=== PATIENT | male | born 1955 ===

== ENCOUNTER 2020-11-02 20:23 | Emergency (ER) | payer OTHER, MEDICARE ==
[~2020-11-02] VITALS: Ht 172.7 cm; Wt 79.4 kg
== END 2020-11-02 21:49 | disposition home or self-care (01) ==
LOC: ER 20:23
DX: U07.1 COVID-19 (principal); R53.83 Other fatigue; R05 Cough; R07.89 Other chest pain
CPT/HCPCS: 99283

== ENCOUNTER 2021-07-31 19:21 | Emergency (ER) | payer OTHER ==
[~2021-07-31] VITALS: Ht 172.7 cm; Wt 79.4 kg
[2021-07-31] MEDS ORDERED: EUTHYROX25 MC1 (19:48)
[2021-07-31] MEDS ORDERED: LORA1SY (19:49)
[2021-07-31] MEDS ORDERED: MONT4 (19:49)
== END 2021-07-31 19:56 | disposition home or self-care (01) ==
LOC: ER 19:21
DX: S40.261A Insect bite (nonvenomous) of right shoulder, initial encounter (principal); W57.XXXA Bitten or stung by nonvenomous insect and other nonvenomous arthropods, initial encounter
CPT/HCPCS: 99282

== ENCOUNTER 2024-02-06 08:45 | Inpatient (IN) | payer OTHER ==
[2024-02-06] VITALS (19 sets, daily range): BP systolic 116–147; BP diastolic 66–95
[~2024-02-06] VITALS: Ht 175.3 cm; Wt 85.8 kg
[~2024-02-06 08:45] MED LIST: EUTHYROX25 MC1; LORA1SY; MONT10T PO
[2024-02-06] MEDS ORDERED: FentaNYL Citrate 50 MCG/ML 2 ML Injection ONE ×2 (08:55→09:15)
[2024-02-06] MEDS ORDERED: Heparin Sodium 5000 Units/ML 1ML MDV IV ONE (08:55)
[2024-02-06] MEDS ORDERED: Clopidogrel Bisulfate 75 MG Tab PO ONE (08:55)
[2024-02-06] MEDS ORDERED: FentaNYL Citrate 50 MCG/ML 2 ML Injection IV ONE (08:55)
[2024-02-06] MEDS ORDERED: Verapamil HCL 2.5 MG/ML 2ML Injection ONE (08:56)
[2024-02-06] MEDS ORDERED: Heparin Sodium 1000 Units/ML 10ML MDV ONE (08:56)
[2024-02-06] MEDS ORDERED: NS 2,000 ML IV ONE (08:56)
[2024-02-06] MEDS ORDERED: NS 250 ML IV ONE (08:56)
[2024-02-06] MEDS ORDERED: Nitroglycerin 2 MG/20 ML BTL ONE (08:57)
[2024-02-06 09:09] LABS: BASOPHILS ABSOLUTE AUTO 0.08 K/mm3 (0.00-0.23); BASOPHILS PERCENT AUTO 1 % (0-2); EOSINOPHILS ABSOLUTE AUTO 0.01 K/mm3 (0.00-0.68); EOSINOPHILS PERCENT AUTO 0 % (0-6); Hemoglobin 15.3 g/dL (13.5-17.5); IMMATURE GRAN ABSOLUTE AUTO 0.03 K/mm3 (0.00-0.10); IMMATURE GRAN PERCENT AUTO 0 % (0-1); LYMPHOCYTES ABSOLUTE AUTO 4.27 K/mm3 (0.84-5.20); LYMPHOCYTES PERCENT AUTO 46 % (21-46); MONOCYTES ABSOLUTE AUTO 1.07 K/mm3 (0.16-1.47); MONOCYTES PERCENT AUTO 12 % (4-13); Mean Corpuscular HGB 32.1 pg (26.0-34.0); Mean Corpuscular HGB Conc 34.8 g/dL (31.5-36.5); Mean Corpuscular Volume 92 fL (80-100); Mean Platelet Volume 9.4 fL (9.1-12.4); NEUTROPHILS ABSOLUTE AUTO 3.77 K/mm3 (1.96-9.15); NEUTROPHILS PERCENT AUTO 41 % (41-73); Platelet Count 260 K/mm3 (150-400); RDW Coefficient Variation 12.9 % (11.7-14.2); RDW Standard Deviation 43.8 fL (35.1-46.3); Red Blood Cell Count 4.76 M/mm3 (4.30-5.90); White Blood Cell Count 9.23 K/mm3 (4.00-11.30)
[2024-02-06] MEDS ORDERED: Midazolam HCl 1MG / ML 2ML Vial ONE (09:15)
[2024-02-06 09:22] LABS: Alanine Aminotransfer (ALT/SGP 27 U/L (12-78); Albumin, Blood 3.8 g/dL (3.4-5.0); Albumin/Globulin Ratio 1.1 (0.8-1.8); Alk Phos 61 U/L (50-136); Anion Gap 12 mmol/L (3-11); Aspartate Aminotrans (AST/SGOT 32 U/L (12-37); Bilirubin, Total 0.9 mg/dL (0.1-1.0); Blood Urea Nitrogen 18 mg/dL (8-24); Bun/Creatinine Ratio 18.6 (12.0-20.0); CHOL/HDL RATIO 4.8; CO2, Blood 20 mmol/L (21-32); Calcium, Blood 9.1 mg/dL (8.5-10.1); Chloride, Blood 113 mmol/L (98-108); Cholesterol 207 mg/dL (50-200); Creatinine, Blood 0.97 mg/dL (0.60-1.20); Globulin, Blood 3.6 g/dL (2.2-4.0); Glomerular Filtration Rate 84 (60-); Glucose, Blood 170 mg/dL (70-99); HDL Cholesterol 43 mg/dL (>39); LDL/HDL RATIO 3.2; Low Density Lipoprotein Chol 136 mg/dL (0-110); Magnesium, Blood 2.1 mg/dL (1.6-2.4); Potassium, Blood 3.6 mmol/L (3.5-5.5); Sodium, Blood 141 mmol/L (136-145); Total Protein, Blood 7.4 g/dL (6.4-8.2); Triglycerides 139 mg/dL (30-160); Very Low Density Lipoprot Chol 27 mg/dL (6-32)
[2024-02-06] MEDS ORDERED: Acetaminophen 325 MG TABLET PO PRN (09:25)
[2024-02-06] MEDS ORDERED: Nitroglycerin 0.4 MG SUBL SL PRN (09:25)
[2024-02-06] MEDS ORDERED: FentaNYL Citrate 50 MCG/ML 2 ML Injection IV PRN (09:30)
[2024-02-06] MEDS ORDERED: Tirofiban HCL Monohydrate 3.75 MG/15 ML Vial ONE (09:41)
[2024-02-06] MEDS ORDERED: VITAMIN D310 MC4 PO (10:25)
--- NOTE | 2024-02-06 11:14 | NUR ---
CARE ASSUMPTION PT ARRIVING TO ICU FROM [facility] ALREADY IN ICU BED. PT IS ALERT AND COMMUNICATING APPROPRIATELY W STAFF. PT DENYING ANY CP OR PRESSURE. MONITOR SHOWING SR 60'S W ST ELEVATION IN LEADS V AND MCL. BP WNL AND STABLE. SPO2 >92% ON RM AIR. PT HAS TR BAND ON R RADIAL SITE THAT HAS NO BRUISING OR SWELLING. REPORTED THAT 11ML AIR PLACED IN TR BAND AT 1003. PT ABLE TO PROVIDE HEALTH HX. PT'S AND DAUGHTER AT BEDSIDE.
[2024-02-06] MEDS ORDERED: Heparin Sodium,Porcine 5,000 UNIT/0.5 ML SDV SC ONE (15:27)
--- NOTE | 2024-02-06 18:05 | NUR ---
DAY SHIFT SUMMARY PT HAS REMAINED ALERT AND ORIENTED THIS SHIFT COMMUNICATING APPROPRIATELY W STAFF. PT HAS REPORTED FEELING SORE IN HIS CHEST BUT DOES NOT DESCRIBE IT CHEST PAIN OR PRESSURE. PT'S MONITOR SHOWING SR 60'S W ST ELEVATION IN LEADS V AND MCL WHICH HAVE IMPROVED THE DAY WENT ON. PT HAS HAD NO ECTOPY THIS SHIFT. BP SLIGHTLY ELEVATED W SBP IN THE 130'S-140'S. SPO2 >94% ON RM AIR. PT AFEBRILE. PT TOLERATING PO INTAKE WELL. PT'S R RADIAL SITE HAS BEEN FULLY RECOVERED SHOWING VERY LLIGHT BRUISING BUT IS SOFT/NONTENDER. PT HAS BEEN PLEASANT AND COOPERATIVE W CARE THIS SHIFT. PT'S FAMILY AT BEDSIDE T/O THE SHIFT. WILL REPORT TO ONCOMING RN.
--- NOTE | 2024-02-06 19:39 | NUR ---
ASSUMED CARE OF PATIENT AT 1900. REPORT RECEIVED FROM JOCELYN Garcia RN. PT RESTING IN BED. TR BAND FULLY RECOVERED ON DAYSHIFT PER REPORT. ARMBAND IN PLACE TO R ARM, R RADIAL SITE VISUALIZED - VERY MILD BRUISING SURROUNDING ACCESS SITE ONLY, SOFT/NONTENDER WHICH IS UNCHANGED FROM PRIOR PER DAY SHIFT NURSE. REPORTS THAT HIS CHEST FEELS SORE BUT IS IMPROVED FROM PRIOR, DENIES SOB. VSS. SEE SHIFT ASSESSMENT FOR FULL DETAILS.
[2024-02-06] MEDS ORDERED: Atorvastatin 10 MG Tab PO SCH (21:00)
[2024-02-06] MEDS ORDERED: Metoprolol Tartrate 25 MG Tab PO SCH (21:00)
[2024-02-07 01:00] VITALS: BP 130/89
[2024-02-07 02:00] VITALS: BP 126/89
[2024-02-07 03:00] VITALS: BP 133/81
[2024-02-07 03:31] LABS: BASOPHILS ABSOLUTE AUTO 0.04 K/mm3 (0.00-0.23); BASOPHILS PERCENT AUTO 0 % (0-2); EOSINOPHILS PERCENT AUTO 0 % (0-6); Hematocrit 44.8 % (37.0-53.0); Hemoglobin 15.1 g/dL (13.5-17.5); IMMATURE GRAN ABSOLUTE AUTO 0.03 K/mm3 (0.00-0.10); IMMATURE GRAN PERCENT AUTO 0 % (0-1); LYMPHOCYTES ABSOLUTE AUTO 1.81 K/mm3 (0.84-5.20); LYMPHOCYTES PERCENT AUTO 14 % (21-46); MONOCYTES ABSOLUTE AUTO 1.16 K/mm3 (0.16-1.47); MONOCYTES PERCENT AUTO 9 % (4-13); Mean Corpuscular HGB 31.6 pg (26.0-34.0); Mean Corpuscular HGB Conc 33.7 g/dL (31.5-36.5); Mean Corpuscular Volume 94 fL (80-100); Mean Platelet Volume 9.6 fL (9.1-12.4); NEUTROPHILS ABSOLUTE AUTO 10.15 K/mm3 (1.96-9.15); NEUTROPHILS PERCENT AUTO 77 % (41-73); Platelet Count 201 K/mm3 (150-400); RDW Coefficient Variation 13.1 % (11.7-14.2); RDW Standard Deviation 44.6 fL (35.1-46.3); Red Blood Cell Count 4.78 M/mm3 (4.30-5.90); White Blood Cell Count 13.19 K/mm3 (4.00-11.30)
[2024-02-07 03:52] LABS: Bun/Creatinine Ratio 18.7 (12.0-20.0); Creatinine, Blood 0.85 mg/dL (0.60-1.20); Potassium, Blood 4.1 mmol/L (3.5-5.5)
[2024-02-07 04:06] VITALS: BP 135/92
[2024-02-07 05:00] VITALS: BP 117/73
[2024-02-07] MEDS ORDERED: Levothyroxine Sodium 0.025 MG Tab PO SCH (06:00)
--- NOTE | 2024-02-07 06:06 | NUR ---
SHIFT SUMMERY PT HAS HAD NO COMPLAINTS OF CHEST PAIN/PRESSURE OVERNIGHT. ACCESS SITE WNL. VS WNL. HE IS ALERT AND ORIENTED X4, COOPERATIVE W/CARE. ABLE TO MAKE NEEDS KNOWN. HE HAS HAD NO ACUTE CHANGES OVERNIGHT.
[2024-02-07] MEDS ORDERED: Clopidogrel Bisulfate 75 MG Tab PO SCH (09:00)
[2024-02-07] MEDS ORDERED: Losartan Potassium 25 MG Tab PO SCH (09:00)
[2024-02-07] MEDS ORDERED: Aspirin 81 MG Chew PO SCH (09:00)
[2024-02-07] MEDS ORDERED: ASPI81CH PO (13:04)
[2024-02-07] MEDS ORDERED: ATOR40TA PO (13:05)
[2024-02-07] MEDS ORDERED: CLOP75 PO (13:05)
[2024-02-07] MEDS ORDERED: LOSA25 PO (13:06)
[2024-02-07] MEDS ORDERED: METO25 PO (13:06)
[2024-02-07] MEDS ORDERED: NITR.4SL SL (13:07)
[2024-02-07 13:27] VITALS: BP 95/69
--- NOTE | 2024-02-07 13:36 | NUR ---
DISCHARGE PT HAS HAD NO EVENTS THIS SHIFT. PT DENYING ANY CHEST PAIN OR PRESSURE. MONITOR SHOWING SR 70'S W NO ECTOPY THIS SHIFT. BP WNL AND STABLE. PT TOLERATING PO NTAKE. PT GIVEN DISHARGE ORDERS. PT GIVEN DISHARGE INSTRUCTIONS. IV DC'D. PT TAKEN OUT IN WHEELCHAIR.
== END 2024-02-07 13:36 | disposition home or self-care (01) | DRG 322 ==
LOC: ER 08:45 → PCU 08:46 → ICUE 09:24
PROVIDERS: Emergency Medicine; ADMIT Family Medicine
PROC: 027034Z Dilation of Coronary Artery, One Artery with Drug-eluting Intraluminal Device, Percutaneous Approach (ICD-10-PCS; principal; 2024-02-06)
PROC: B2111ZZ Fluoroscopy of Multiple Coronary Arteries using Low Osmolar Contrast (ICD-10-PCS; 2024-02-06)
DX: I21.09 ST elevation (STEMI) myocardial infarction involving other coronary artery of anterior wall (principal); J45.909 Unspecified asthma, uncomplicated; E78.5 Hyperlipidemia, unspecified; E03.9 Hypothyroidism, unspecified; R73.02 Impaired glucose tolerance (oral); Z79.899 Other long term (current) drug therapy; Z79.890 Hormone replacement therapy
CPT/HCPCS: 36415; 71045; 73200; 76937; 80048; 80053; 80061; 83036; 83735; 84484; 85025; 86850; 86900; 86901; 92953; 93005; 93010; 93454; 96374-59; 96375-59; 99152; 99153; 99291-25; A9270; C1725; C1769; C1874; C1887; C1894; C8929; C9606; J1644; J2250; J3010; J3246; J7030; J7050; Q9957; Q9967

== ENCOUNTER 2024-06-26 21:08 | Emergency (ER) | payer OTHER ==
[~2024-06-26] VITALS: Ht 172.7 cm; Wt 86.6 kg
[~2024-06-26 21:08] MED LIST changes: +ASPI81CH PO; +ATOR40TA PO; +CLOP75 PO; +LOSA25 PO; +METO25 PO; +NITR.4SL SL; +VITAMIN D310 MC4 PO
[2024-06-26 22:25] LABS: BASOPHILS ABSOLUTE AUTO 0.06 K/mm3 (0.00-0.23); BASOPHILS PERCENT AUTO 1 % (0-2); EOSINOPHILS ABSOLUTE AUTO 0.23 K/mm3 (0.00-0.68); EOSINOPHILS PERCENT AUTO 3 % (0-6); Hematocrit 39.7 % (37.0-53.0); Hemoglobin 13.4 g/dL (13.5-17.5); IMMATURE GRAN ABSOLUTE AUTO 0.02 K/mm3 (0.00-0.10); IMMATURE GRAN PERCENT AUTO 0 % (0-1); LYMPHOCYTES ABSOLUTE AUTO 2.22 K/mm3 (0.84-5.20); LYMPHOCYTES PERCENT AUTO 31 % (21-46); MONOCYTES ABSOLUTE AUTO 0.85 K/mm3 (0.16-1.47); MONOCYTES PERCENT AUTO 12 % (4-13); Mean Corpuscular HGB 32.4 pg (26.0-34.0); Mean Corpuscular HGB Conc 33.8 g/dL (31.5-36.5); Mean Corpuscular Volume 96 fL (80-100); Mean Platelet Volume 9.8 fL (9.1-12.4); NEUTROPHILS PERCENT AUTO 54 % (41-73); Platelet Count 183 K/mm3 (150-400); RDW Coefficient Variation 13.2 % (11.7-14.2); RDW Standard Deviation 46.6 fL (35.1-46.3); Red Blood Cell Count 4.13 M/mm3 (4.30-5.90); White Blood Cell Count 7.28 K/mm3 (4.00-11.30)
[2024-06-26 22:44] LABS: Albumin, Blood 3.4 g/dL (3.4-5.0); Bilirubin, Total 0.4 mg/dL (0.1-1.0); Bun/Creatinine Ratio 16.5 (12.0-20.0); Calcium, Blood 8.6 mg/dL (8.5-10.1); Creatinine, Blood 1.27 mg/dL (0.60-1.20); Globulin, Blood 3.3 g/dL (2.2-4.0); Potassium, Blood 4.5 mmol/L (3.5-5.5); Total Protein, Blood 6.7 g/dL (6.4-8.2)
[2024-06-27] MEDS ORDERED: CODACE30 PO (00:25)
[2024-06-27 00:30] VITALS: BP 139/83
== END 2024-06-27 00:45 | disposition home or self-care (01) ==
LOC: ER 21:08
PROVIDERS: Student in an Organized Health Care Education/Training Program
DX: M25.512 Pain in left shoulder (principal); E03.9 Hypothyroidism, unspecified; I25.10 Atherosclerotic heart disease of native coronary artery without angina pectoris; Z79.890 Hormone replacement therapy; Z79.82 Long term (current) use of aspirin; Z79.899 Other long term (current) drug therapy
CPT/HCPCS: 71046; 80053; 83690; 84484; 85025; 93005; 93010; 99285-25

== ENCOUNTER 2024-09-13 06:18 | Day surgery (SDC) | payer OTHER ==
[~2024-09-13] VITALS: Ht 172.7 cm; Wt 87.9 kg
[~2024-09-13 06:18] MED LIST changes: +CODACE30 PO; +ELIQUIS5 M2 PO; -EUTHYROX25 MC1; +EUTHYROX25 MC1 PO; +Loratadine10 MG; +MONT10T; -MONT10T PO; +SYNTHROID25 M12 PO
[2024-09-13] MEDS ORDERED: propofoL 20 ML IV ONE ×2 (06:50→09:43)
[2024-09-13] MEDS ORDERED: FentaNYL Citrate 50 MCG/ML 2 ML Injection ONE ×2 (06:50→09:17)
[2024-09-13] MEDS ORDERED: Midazolam HCl 1MG / ML 2ML Vial ONE (06:50)
[2024-09-13] MEDS ORDERED: Rocuronium Bromide 10 MG/ML 5ML Injection IV ONE (06:51)
[2024-09-13] MEDS ORDERED: Dexamethasone Sod Phos 10 MG/ML 1ML VIAL ONE (06:51)
[2024-09-13] MEDS ORDERED: Phenylephrine HCl 100 MCG/ML-NS 10MLSYR (1MG/10ML) ONE (06:51)
[2024-09-13] MEDS ORDERED: Ondansetron HCl 2 MG / ML 2ML Vial ONE (06:51)
[2024-09-13] MEDS ORDERED: Sugammadex Sodium 200 MG/2ML SDV (100 MG/ML) ONE (06:52)
[2024-09-13] MEDS ORDERED: ePHEDrine Sulfate 50 MG/ML 1ML Injection ONE (06:52)
[2024-09-13] MEDS ORDERED: Remifentanil 1 MG Vial ONE (06:59)
[2024-09-13] MEDS ORDERED: propofoL 100 ML IV ONE (07:00)
[2024-09-13] MEDS ORDERED: Ropivacaine 0.5% HCL/PF 5 MG/ML 30ML Vial ONE (07:03)
[2024-09-13] MEDS ORDERED: CeFAZolin Sodium 2,000 MG VIAL ONE (07:04)
[2024-09-13] MEDS ORDERED: Phenylephrine HCl 10mg/ml 1 ml Vial ONE (07:05)
[2024-09-13] MEDS ORDERED: Lactated Ringer's 1,000 ML IV ONE ×2 (07:05→09:14)
[2024-09-13] MEDS ORDERED: NS 0 ML IV ONE ×2 (07:07→07:20)
[2024-09-13 10:19] VITALS: BP 113/82
--- NOTE | 2024-09-13 10:20 | NUR ---
09/13/24 1020 Ketty Pereira PT TRANSFERS TO SDU PHASE OF CARE. PT SITTING UP IN CART, CONVERSING W/ RN. VSS, ON RA. PT C/O ACHING TO L CLAVICLE AREA, STATES IT IS TOLERABLE. NO VISIBLE SIGNS OF DISTRESS NOTED.
[2024-09-13] MEDS ORDERED: OxyCODONE HCL 5 MG TAB ONE (10:51)
[2024-09-16 14:53] LABS: HEPATITIS B SURFACE ANTIGEN Negative (Negative)
[2024-09-18 07:01] LABS: HCV QNT BY NAAT (IU/ML) Not Detected; HCV QNT BY NAAT (LOG IU/ML) Not Detected; HCV QNT BY NAAT INTERP Not Detected (Not Detected)
== END 2024-09-13 11:10 | disposition home or self-care (01) ==
LOC: ORSCSDS 06:18
PROVIDERS: Orthopaedic Surgery
PROC: 0PSB04Z Reposition Left Clavicle with Internal Fixation Device, Open Approach (ICD-10-PCS; principal; 2024-09-13 07:30)
DX: S42.022A Displaced fracture of shaft of left clavicle, initial encounter for closed fracture (principal); I10 Essential (primary) hypertension; I25.2 Old myocardial infarction; I50.9 Heart failure, unspecified; I25.10 Atherosclerotic heart disease of native coronary artery without angina pectoris; E07.9 Disorder of thyroid, unspecified; Z79.899 Other long term (current) drug therapy
CPT/HCPCS: 87340; 87522; A9270; C1713; J0690; J1100; J2250; J2371; J2405; J2704; J2795; J3010; J7120